=== PATIENT | male | born 1965 | race Caucasian/White ===

== ENCOUNTER 2019-08-09 08:57 | Inpatient (IN) | payer OTHER ==
[~2019-08-09] VITALS: Ht 172.7 cm; Wt 74.8 kg
[2019-08-09] MEDS ORDERED: IPRATROPIUM BROMIDE (0.02%) 0.5MG/2.5ML NEB HHN STA (10:51)
[2019-08-09] MEDS ORDERED: METHYLPREDNISOLONE SOD SUCC 125 MG/2 ML VIAL IV STA (10:51)
[2019-08-09] MEDS ORDERED: ALBUTEROL (0.083%) 2.5MG/3ML NEB HHN STA (10:51)
[2019-08-09] MEDS ORDERED: VANCOMYCIN 1 G PREMIX 200 ML IV ONE (11:00)
[2019-08-09] MEDS ORDERED: LORAZEPAM 1MG TABLET PO ONE (11:00)
[2019-08-09] MEDS ORDERED: SODIUM CHLORIDE 0.9% 1000ML BAG (SEPSIS BOLUS) IV ONE (11:00)
[2019-08-09] MEDS ORDERED: PIPERACILLIN/TAZ 3.375G PREMIX 50 ML IV ONE (11:00)
[2019-08-09 11:03] LABS: HEMATOCRIT. 37.3 % (42.0-52.0); HEMOGLOBIN. 11.6 g/dL (14.0-18.0); MEAN CORPUSCULAR HEMOGLOBIN 24.3 pg (28.0-32.0); PLATELET 449 x1000/uL (130-400); RED BLOOD CELL COUNT 4.78 mill/uL (4.7-6.1); RED CELL DISTRIBUTION WIDTH 17.7 % (11.6-14.6)
[2019-08-09 11:11] LABS: CHLORIDE 99 mEq/L (98-107); INR 1.1; PROTHROMBIN TIME 11.1 sec (9.6-11.0)
[2019-08-09 11:24] LABS: PLATELET ESTIMATE INCREASED
[2019-08-09 13:50] LABS: BG BASE EXCESS 0.5 mmol/L (-2.0-2.0); BG CARBOXYHEMOGLOBIN 0.9 % (0.5-1.5); BG DEOXYHEMOGLOBIN 9.1 % (0.0-5.0); BG FRACTION INSPIRED OXYGEN 36; BG HCO3 ACT 25.8 mmol/L (22.0-26.0); BG OXYGEN SATURATION 90.8 % (92.0-98.5); BG PCO2 44.7 mmHg (35.0-45.0); BG PO2 63.9 mmHg (75.0-100.0); BG SAMPLE SITE RIGHT RADIAL; BG TOTAL HEMOGLOBIN 11.4 g/dL (12.0-18.0); BG VENT MODE NASAL CANNULA
[2019-08-09] MEDS ORDERED: LORAZEPAM 2MG/ML CPJ IV ONE (15:00)
[2019-08-09] MEDS ORDERED: SODIUM CHLORIDE 0.9% 1,000 ML IV ONE (15:15)
[2019-08-09] MEDS ORDERED: MEROPENEM 500 MG in SODIUM CHLORIDE 0.9% 50 ML IV SCH ×2 (16:45→18:30)
[2019-08-09] MEDS ORDERED: SODIUM POLYSTYRENE SULFONATE 15 G/60 ML BOT PO ONE (16:45)
[2019-08-09] MEDS ORDERED: IPRATROPIUM/ALBUTEROL 0.5-3(2.5)MG/3ML NEB HHN PRN (16:45)
[2019-08-09] MEDS ORDERED: DOCUSATE SODIUM 100MG CAPSULE PO SCH (17:00)
[2019-08-09 18:10] LABS: CLARITY URINE CLEAR (CLEAR); COLOR URINE YELLOW (YELLOW); KETONES URINE NEGATIVE (NEGATIVE); LEUKOCYTE ESTERASE URINE NEGATIVE (NEGATIVE); NITRITE URINE NEGATIVE (NEGATIVE); OCCULT BLOOD URINE 3+ (NEGATIVE); PROTEIN URINE 1+ (NEGATIVE); UROBILINOGEN URINE 0.2 E.U./dL (0.2-1.0)
[2019-08-09] MEDS ORDERED: CLONIDINE 0.1MG TABLET PO PRN (18:45)
[2019-08-09] MEDS ORDERED: MAGNESIUM/ALUMINUM HYDROXIDE/SIMETHICONE 30ML UDC PO PRN (18:45)
[2019-08-09] MEDS ORDERED: ACETAMINOPHEN 325MG TABLET PO PRN (18:45)
[2019-08-09 22:00] VITALS: BP 120/67
[2019-08-09] MEDS: HYDROCODONE/ACETAMINOPHEN 5/325MG TABLET PO PRN (23:07)
[2019-08-09 23:23] VITALS: BP 109/67
[2019-08-09] MEDS ORDERED: IOHEXOL-350 100 ML BOTTLE ONE (23:43)
[2019-08-10] VITALS (11 sets, daily range): BP systolic 93–114; BP diastolic 50–73
[2019-08-10] MEDS ORDERED: VANCOMYCIN 1500MG in DEXTROSE 5% WATER 250ML IV SCH ×2
[2019-08-10] MEDS: DIPHENHYDRAMINE 50MG/ML VIAL IV PRN ×3 (00:24→21:00)
[2019-08-10] MEDS: FLUTICASONE PROPIONATE 50MCG/SPRAY BOTTLE BOTHNSTRLS SCH ×3 (02:09→21:00)
[2019-08-10] MEDS: IPRATROPIUM/ALBUTEROL 0.5-3(2.5)MG/3ML NEB HHN SCH ×4 (02:26→21:17)
[2019-08-10] MEDS: MEROPENEM 1,000 MG in SODIUM CHLORIDE 0.9% 100 ML IV SCH ×3 (03:07→19:29)
[2019-08-10 06:46] LABS: HEMATOCRIT. 32.6 % (42.0-52.0); HEMOGLOBIN. 10.5 g/dL (14.0-18.0); MEAN CORPUSCULAR HEMOGLOBIN 25.1 pg (28.0-32.0); MEAN CORPUSCULAR VOLUME 77.6 fL (80.0-94.0); MEAN PLATELET VOLUME 8.9 fl (7.4-10.4); PLATELET 420 x1000/uL (130-400); RED BLOOD CELL COUNT 4.19 mill/uL (4.7-6.1); RED CELL DISTRIBUTION WIDTH 17.4 % (11.6-14.6)
[2019-08-10 07:25] LABS: CHLORIDE 101 mEq/L (98-107)
[2019-08-10 07:31] LABS: PHOSPHORUS 3.7 mg/dL (2.5-4.9)
[2019-08-10] MEDS ORDERED: VANCOMYCIN 1 G PREMIX 200 ML IV SCH (08:00)
[2019-08-10] MEDS: ENOXAPARIN 40MG/0.4ML SYR SUBCUT SCH (08:31)
[2019-08-10] MEDS: DOCUSATE SODIUM 100MG CAPSULE PO SCH ×2 (08:31→17:25)
[2019-08-10 09:38] LABS: PLATELET ESTIMATE SLIGHTLY INCREASED
[2019-08-10] MEDS ORDERED: FUROSEMIDE 20MG/2ML VIAL IVP SCH (10:15)
[2019-08-10 10:22] LABS: BG BASE EXCESS 1.2 mmol/L (-2.0-2.0); BG CARBOXYHEMOGLOBIN 0.6 % (0.5-1.5); BG DEOXYHEMOGLOBIN 14.1 % (0.0-5.0); BG FRACTION INSPIRED OXYGEN 21; BG HCO3 ACT 25.8 mmol/L (22.0-26.0); BG METHEMOGLOBIN 0.3 % (0.0-1.5); BG OXYGEN SATURATION 85.8 % (92.0-98.5); BG PCO2 40.8 mmHg (35.0-45.0); BG PH 7.419 (7.350-7.450); BG PO2 54.6 mmHg (75.0-100.0); BG SAMPLE SITE RIGHT BRACHIAL; BG TOTAL HEMOGLOBIN 11.6 g/dL (12.0-18.0); BG VENT MODE ROOM AIR
[2019-08-10] MEDS ORDERED: METHYLPREDNISOLONE SOD SUCC 125 MG/2 ML VIAL IV NR (10:57)
[2019-08-10] MEDS: DOXYCYCLINE HYCLATE 100MG CAPSULE PO SCH ×2 (16:05→21:00)
[2019-08-10] MEDS: METHYLPREDNISOLONE SOD SUCC 125 MG/2 ML VIAL IV SCH (17:25)
[2019-08-10] MEDS: HYDROCODONE/ACETAMINOPHEN 5/325MG TABLET PO PRN (19:29)
[2019-08-11] VITALS (7 sets, daily range): BP systolic 109–122; BP diastolic 50–80
[2019-08-11] MEDS: METHYLPREDNISOLONE SOD SUCC 125 MG/2 ML VIAL IV SCH ×4 (00:44→17:54)
[2019-08-11] MEDS: IPRATROPIUM/ALBUTEROL 0.5-3(2.5)MG/3ML NEB HHN SCH ×4 (01:28→21:03)
[2019-08-11] MEDS: MEROPENEM 1,000 MG in SODIUM CHLORIDE 0.9% 100 ML IV SCH ×3 (03:19→17:55)
[2019-08-11 06:42] LABS: HEMATOCRIT. 32.6 % (42.0-52.0); HEMOGLOBIN. 10.2 g/dL (14.0-18.0); MEAN CORPUSCULAR HEMOGLOBIN 24.6 pg (28.0-32.0); MEAN CORPUSCULAR VOLUME 78.9 fL (80.0-94.0); MEAN PLATELET VOLUME 8.9 fl (7.4-10.4); PLATELET 396 x1000/uL (130-400); RED BLOOD CELL COUNT 4.13 mill/uL (4.7-6.1); RED CELL DISTRIBUTION WIDTH 17.7 % (11.6-14.6)
[2019-08-11 06:47] LABS: CHLORIDE 102 mEq/L (98-107)
[2019-08-11 07:21] LABS: HEPATITIS B SURFACE ANTIGEN NEGATIVE
[2019-08-11 07:51] LABS: HEPATITIS A AB IGM NEGATIVE (NEGATIVE)
[2019-08-11] MEDS: DOXYCYCLINE HYCLATE 100MG CAPSULE PO SCH ×2 (08:53→20:30)
[2019-08-11] MEDS: DOCUSATE SODIUM 100MG CAPSULE PO SCH ×2 (08:53→17:55)
[2019-08-11] MEDS: ENOXAPARIN 40MG/0.4ML SYR SUBCUT SCH (08:54)
[2019-08-11] MEDS: FLUTICASONE PROPIONATE 50MCG/SPRAY BOTTLE BOTHNSTRLS SCH ×2 (08:54→20:30)
[2019-08-11 12:41] LABS: BG BASE EXCESS 2.1 mmol/L (-2.0-2.0); BG CARBOXYHEMOGLOBIN 0.4 % (0.5-1.5); BG DEOXYHEMOGLOBIN 11.2 % (0.0-5.0); BG FRACTION INSPIRED OXYGEN 21; BG HCO3 ACT 26.8 mmol/L (22.0-26.0); BG METHEMOGLOBIN 0.3 % (0.0-1.5); BG OXYGEN SATURATION 88.7 % (92.0-98.5); BG OXYHEMOGLOBIN 88.1 % (94.0-97.0); BG PH 7.422 (7.350-7.450); BG PO2 58.1 mmHg (75.0-100.0); BG SAMPLE SITE RIGHT RADIAL; BG TOTAL HEMOGLOBIN 10.8 g/dL (12.0-18.0); BG VENT MODE ROOM AIR
[2019-08-11 13:27] LABS: PLATELET ESTIMATE NORMAL
[2019-08-11] MEDS: HYDROCODONE/ACETAMINOPHEN 5/325MG TABLET PO PRN (19:46)
[2019-08-11] MEDS: DIPHENHYDRAMINE 50MG/ML VIAL IV PRN (19:46)
[2019-08-12] MEDS: IPRATROPIUM/ALBUTEROL 0.5-3(2.5)MG/3ML NEB HHN SCH ×3 (01:35→13:06)
[2019-08-12] MEDS: MEROPENEM 1,000 MG in SODIUM CHLORIDE 0.9% 100 ML IV SCH ×2 (03:14→12:31)
[2019-08-12] MEDS: METHYLPREDNISOLONE SOD SUCC 125 MG/2 ML VIAL IV SCH ×4 (03:14→17:32)
[2019-08-12 06:41] LABS: HEMATOCRIT. 32.9 % (42.0-52.0); HEMOGLOBIN. 10.5 g/dL (14.0-18.0); MEAN CORPUSCULAR HEMOGLOBIN 24.9 pg (28.0-32.0); MEAN CORPUSCULAR VOLUME 78.1 fL (80.0-94.0); MEAN PLATELET VOLUME 8.6 fl (7.4-10.4); PLATELET 406 x1000/uL (130-400); RED BLOOD CELL COUNT 4.22 mill/uL (4.7-6.1); RED CELL DISTRIBUTION WIDTH 17.7 % (11.6-14.6)
[2019-08-12 06:43] LABS: CHLORIDE 101 mEq/L (98-107)
[2019-08-12] MEDS: DOXYCYCLINE HYCLATE 100MG CAPSULE PO SCH (09:14)
[2019-08-12] MEDS: ENOXAPARIN 40MG/0.4ML SYR SUBCUT SCH (09:14)
[2019-08-12] MEDS: FLUTICASONE PROPIONATE 50MCG/SPRAY BOTTLE BOTHNSTRLS SCH (09:14)
[2019-08-12] MEDS: DOCUSATE SODIUM 100MG CAPSULE PO SCH ×2 (09:14→17:00)
[2019-08-12 13:27] LABS: PLATELET ESTIMATE NORMAL
[2019-08-12 14:20] VITALS: BP 113/80
[2019-08-12 16:00] VITALS: BP 113/80
== END 2019-08-12 18:20 | disposition home or self-care (01) | DRG 720 ==
LOC: ER 08:57 → 3WST 11:13 → EDBEDREQ 11:18 → ENRESERV 14:03 → CANRESERV 14:03 → ENRESERV 19:16
PROVIDERS: ADMIT Family Medicine Adult Medicine; ATTEND Family Medicine Adult Medicine
DX: A41.9 Sepsis, unspecified organism (principal); J96.01 Acute respiratory failure with hypoxia; E43 Unspecified severe protein-calorie malnutrition; J18.9 Pneumonia, unspecified organism; C78.89 Secondary malignant neoplasm of other digestive organs; C79.51 Secondary malignant neoplasm of bone; E87.2 Acidosis; R13.10 Dysphagia, unspecified; C34.90 Malignant neoplasm of unspecified part of unspecified bronchus or lung; D64.9 Anemia, unspecified; N39.0 Urinary tract infection, site not specified; E87.5 Hyperkalemia; B19.20 Unspecified viral hepatitis C without hepatic coma; J00 Acute nasopharyngitis [common cold]; K59.00 Constipation, unspecified; Z92.21 Personal history of antineoplastic chemotherapy; Z68.25 Body mass index [BMI] 25.0-25.9, adult; Z85.71 Personal history of Hodgkin lymphoma; Z91.19 Patient's noncompliance with other medical treatment and regimen; Z87.440 Personal history of urinary (tract) infections; Z87.01 Personal history of pneumonia (recurrent); Z79.899 Other long term (current) drug therapy; Z82.3 Family history of stroke
CPT/HCPCS: 36415; 36600; 71045; 71275; 74176; 76770; 80048; 80202; 81003; 82375; 82805; 83605; 83735; 83880; 84100; 84145; 84443; 84484; 85379; 86705; 86709; 86803; 87070; 87340; 87804; 92610; 93005; 93306; 93970; 94640; 94660; 97116; 97162; 97166; 97530; J1200; J1650; J1940; J2185; J2543; J2930; J3370; J7030; J7050; J7060; J7611; J7620; Q9967